=== PATIENT | female | born 1975 | race Caucasian/White ===

== ENCOUNTER → 2023-11-13 | Outpatient (CLI) | payer MEDICAID ==
[~2023-11-13] MED LIST: CIPRO 250MG TA250 MG PO; NORCO 325 MG-51 TAB PO; WELLBUTRIN75 MG PO; ZOLOFT 100MG100 MG PO
[2024-01-02 10:07] LABS: ALBUMIN 3.9 g/dL (3.5-5.0); DIRECT BILIRUBIN 0.2 mg/dL (0.0-0.5); TOTAL BILIRUBIN 0.4 mg/dL (0.2-1.2); TOTAL PROTEIN 6.8 g/dL (6.4-8.3)
== END ==
LOC: LAB 11:11
PROVIDERS: Physician Assistant
DX: R94.5 Abnormal results of liver function studies (principal)